=== PATIENT | female | born 1945 | race Caucasian/White ===

== ENCOUNTER 2017-04-04 12:31 | Emergency (ER) | payer MEDICARE, OTHER ==
[~2017-04-04] VITALS: Ht 170.2 cm; Wt 100.0 kg
[~2017-04-04 12:31] MED LIST: ASPI-628 PO; CHOL100045 PO; CINN500C14 PO; COLC0.6T52 PO; FENO160T PO; GLUC100016 PO; HYDR-4003 PO; LACT1CAP65 PO; LISI-609 PO; METO25TA3 PO; OMEG1CAP5 PO; PRD2.5T PO; PRE625 VG; [UNRECOGNIZED DRUG - CODE] PO
[2017-04-04 12:37] VITALS: BP 201/79; PULSE 58; RESP 10; O2SAT 96
--- NOTE | 2017-04-04 12:51 | ED.REPORT ---
HPI-Headache Date of Service Apr 04, 2017 ED Provider: Anirudh Varghese DO Pt is a 71 y/o female with a history of hypertension, dyslipidemia, DM, and renal cancer who presents to the ED with hypertension onset prior to arrival. She states that she took her blood pressure at [facility] and noticed it was over 200 so she decided to come to the ED. She takes 40 mg of lisinopril and 50 mg of metoprolol for hypertension. Additional symptoms include a headache which is not maximal in onset or severe. She denies chest pain, SOB, abdominal pain, focal weakness, numbness/tingling, fever, chills, back pain, neck pain, or any other symptoms. Nursing Notes Stated Complaint: BLOOD PRESSURE Chief Complaint: General Complaint Nursing Notes Reviewed: Yes Allergies: Coded Allergies: codeine (Verified Allergy, Unknown, 11/02/14) Uncoded Allergies: Tetanus Toxoid (Allergy, Severe, rash, 11/01/14) PROCAINE HCL (Generic Allergy) (Allergy, Unknown, pt doesnt think she has a problem w/ this med, 11/02/14) Scheduled Amlodipine (Amlodipine) 5 Mg Tablet 5 MG PO DAILY Aspirin (Aspir 81) 81 Mg Tablet.dr 81 MG PO DAILY Cholecalciferol (Vitamin D3) (Vitamin D) 1,000 Unit Capsule 1,000 UNIT PO DAILY Cinnamon Bark (Cinnamon) 500 Mg Capsule 500 MG PO DAILY Colchicine (Colcrys) 0.6 Mg Tablet 0.6 MG PO BID Cyanocobalamin (Vitamin B-12) 500 Mcg Tab 500 MCG PO DAILY Estrogens Conjugated (Premarin) 0.625 Mg Tablet 0.625 MG VG DAILY 3 WKS ON/1 WK OFF Fenofibrate (Tricor) 145 Mg Tab 70 MG PO DAILY Glucosamine Sulfate 2Kcl (Glucosamine) 1,000 Mg Tablet 500 MG PO DAILY Lactobacillus Acidophilus (Probiotic) 1 Each Capsule 1 EACH PO DAILY Lisinopril (Zestril) 5 Mg Tab 5 MG PO DAILY Metoprolol Succinate ER (Toprol XL) 25 Mg Tab.er.24h 25 MG PO DAILY [place]-3 Fatty Acids/Fish Oil (Fish Oil 1,000 mg Capsule) 1 Each Capsule 1 EACH PO DAILY Prednisone (PredniSONE) Unknown Strength Tab Unknown Dose PO DAILY daily for 2 days if having fever syndrome exacerbation Scheduled PRN Hydrocodone-Acetaminophen 5-325 mg (Hydrocodone-Acetaminophen 5-325 mg) 1 Each Tablet 1-2 EACH PO Q4 PRN PRN For Pain General Time Seen by MD: 12:50 Chief Complaint Other (hypertension) Hx Obtained From: Patient Arrived By: Walk-in Sudden in Onset?: Yes Onset Occurred: Just prior to arrival Severity: Current: Mild Severity: Maximum: Mild Recent Healthcare: No recent hospitalization, Recent doctor visit Similar Sx Previous: Yes Past Medical History Past Medical History Hx of kidney cancer H[place]ern[place] fever syndrome Dyslipidemia Hiatal hernia Diverticulosis Arthritis Reports: Diabetes mellitus, Hypertension Past Surgical History Bilateral knee surgery 3 neck surgeries esophagus surgery Left kidney Reports: Appendectomy, Hysterectomy, Tonsillectomy Family History Father has hx of heart disease, he was 58 when he got his first attack Smoking History Never Smoker Social History Alcohol Use: Denies alcohol use Drug Use: Denies drug use Ambulatory Status Independent Review of Systems Constitutional: Denies: Chills, Fever GI: Denies: Abdominal pain Musculoskeletal: Denies: Back pain, Neck pain Neurologic: Reports: Headache (mild), Denies: Focal weakness, Numbness Complete sys rev & neg: except as marked. Respiratory: Denies: Shortness of breath Cardiovascular: Denies: Chest pain Physical Exam Initial Vital Signs Vital Signs (First) Date Time Temp Pulse Resp B/P Pulse Ox O2 Delivery O2 Flow Rate FiO2 04/04/17 12:37 36.7 58 10 201/79 96 Room Air Initial VS: Reviewed Abdomen / GI: Soft, Non-tender Extremities: Vascular intact, Neuro intact, No swelling, No tenderness Skin: Warm, Dry, No cyanosis Psychiatric: Mood/affect normal, Behavior normal, Normal thought content General/Constitutional: Awake, Alert Hypertensive Head / Eyes: Atraumatic, Normocephalic Neck: Supple, Full range of motion Neurologic: Oriented X3, Speech NL Respiratory / Chest: Atraumatic, Breath sounds NL, Breath sounds = bilat, No respiratory distress Cardiovascular: Heart rate NL, Regular rhythm, Heart sounds NL Re-Eval/Medical Decision Med Decision/Clinical Course Elevated blood pressure without signs of end organ damage by clinical history. Patient does report a mild headache which is not the worst of her life, not maximal at onset, and in fact she declines even a Tylenol for this. Recommend beginning amlodipine for better overall blood pressure control, extensive discussion was had at the bedside regarding alarming signs or symptoms which would warrant return to the ER immediately and also the need for close outpatient follow-up. Source of Hx: Old records Re-Evaluation/Progress : Time of Eval: 13:09 )( Patient Status: Condition improved Re-Evaluation/Progress Note: Discussed plan for discharge. Patient understands and agrees with plan. F/U instructions and RTER warnings given. All questions addressed at this time. Counseled Regarding: Diagnosis, Lab results, Need for follow-up, When/why to return to ED Discharge & Departure Impression: Primary Impression: Essential hypertension Disposition: Home Discharge Condition All VS Reviewed: Yes Condition: Stable Additional Instructions: Thank you for entrusting us with your medical care today. Your emergency department evaluation today was reassuring. You should check your blood pressure while sitting down for a few minutes before taking it to get the most accurate reading. Take your blood pressure medication as directed by your primary care doctor. Take amlodipine as directed. Please call Dr. Casillas tomorrow in order to schedule a follow-up appointment for a recheck for your high blood pressure and your kidneys. Please return to the emergency department for any new or worsening conditions including any difficulty breathing, chest pain, lightheadedness, or weakness. Referrals: Vega Casillas DO (PCP) Scribe Attestation Portions of this note were transcribed by Yeimi Mota. I, Dr. Varghese, personally performed the history, physical exam and medical decision-making; I reviewed and confirmed the accuracy of the information in the transcribed note. Signed by Danny Whitney, 04/04/17. copies to: Vega Casillas Timothy S DO Apr 04, 2017 12:51 Yeimi Mota Apr 04, 2017 13:03
[2017-04-04] MEDS ORDERED: AMLO5TAB2 PO (13:16)
[2017-04-04 13:42] VITALS: BP 178/79; PULSE 61; RESP 16; O2SAT 96
== END 2017-04-04 13:44 | disposition home or self-care (01) ==
LOC: SED 12:31
DX: I10 Essential (primary) hypertension (principal); E11.9 Type 2 diabetes mellitus without complications; E78.5 Hyperlipidemia, unspecified; Z85.528 Personal history of other malignant neoplasm of kidney; Z98.890 Other specified postprocedural states; Z79.82 Long term (current) use of aspirin; Z88.5 Allergy status to narcotic agent